=== PATIENT | male | born 1960 | race Caucasian/White ===

== ENCOUNTER 2016-10-28 10:47 | Emergency (ER) | payer OTHER, MEDICARE ==
[~2016-10-28] VITALS: Ht 175.2 cm; Wt 102.1 kg
[2016-10-28] MEDS ORDERED: LYRICA100 M1 PO (10:58)
[2016-10-28] MEDS ORDERED: CELEBREX100 MG PO (10:58)
== END 2016-10-28 14:27 | disposition home or self-care (01) ==
LOC: ED 10:47
DX: S51.812A Laceration without foreign body of left forearm, initial encounter (principal); W45.8XXA Other foreign body or object entering through skin, initial encounter; Y93.89 Activity, other specified; Y92.810 Car as the place of occurrence of the external cause; Y99.9 Unspecified external cause status